=== PATIENT | male | born 1985 | race African-American/Black ===

== ENCOUNTER 2018-03-09 17:50 | Emergency (ER) | payer SELFPAY ==
[~2018-03-09] VITALS: Ht 175.3 cm; Wt 65.8 kg
[2018-03-09 18:14] VITALS: BP 121/73
--- NOTE | 2018-03-09 19:22 | NUR ---
TO ER CHAIR D
[2018-03-09] MEDS ORDERED: LIDOCAINE 1% 500 MG/50 ML VIAL INJ SCH (19:50)
[2018-03-09] MEDS ORDERED: LIDOCAINE 2% 1000 MG/50 ML VIAL INJ ONE (19:54)
[2018-03-09] MEDS ORDERED: LIDOCAINE MPF 1% - **ER/OR** 0 ML ONE (19:55)
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
--- NOTE | 2018-03-09 20:16 | NUR ---
JESSICA GRIFFIN CALLED, ADVISED OF PT SITUATION, WILL FOLLOW UP.
[2018-03-09] MEDS ORDERED: traMADol 50 MG TAB PO ONE (20:20)
--- NOTE | 2018-03-09 21:54 | NUR ---
[place] PD AT CHAIR SIDE TALKING WITH PT.
[2018-03-09 22:06] VITALS: BP 120/71
== END 2018-03-09 22:06 | disposition home or self-care (01) ==
LOC: MED 17:50
DX: S62.306A Unspecified fracture of fifth metacarpal bone, right hand, initial encounter for closed fracture (principal); X58.XXXA Exposure to other specified factors, initial encounter; Y92.89 Other specified places as the place of occurrence of the external cause; Y93.89 Activity, other specified; Y99.8 Other external cause status
CPT/HCPCS: 26605; 73130; 99285; J2001